=== PATIENT | female | born 1960 | race Caucasian/White ===

== ENCOUNTER 2020-10-17 10:50 | Inpatient (IN) | payer MEDICAID, OTHER ==
[~2020-10-17] VITALS: Ht 172.7 cm; Wt 73.5 kg
[2020-10-17 11:21] LABS: Basophils # (auto) 0.1 10 ^3/uL (0-0.2); Basophils % (auto) 1.1 % (0.0-2.0); Eosinophils # (auto) 0.2 10 ^3/uL (0-0.8); Eosinophils % (auto) 2.2 % (0.0-7.0); Hematocrit 34.7 % (36.0-46.0); Hemoglobin 11.4 g/dL (12.2-16.2); Lymphocytes # (auto) 2.6 10 ^3/uL (0.4-5.4); Mean Corpuscular Hemoglobin 31.7 pg (28.0-32.0); Mean Corpuscular Hgb Conc. 32.9 g/dL (32.0-36.0); Mean Corpuscular Volume 96.3 fL (80.0-100.0); Monocytes # (auto) 0.7 10 ^3/uL (0-1.3); Monocytes % (auto) 7.9 % (0.0-12.0); Neutrophils # (auto) 5.6 10 ^3/uL (1.6-8.6); Neutrophils % (auto) 60.8 % (37.0-80.0); Red Blood Cells 3.61 10^6/uL (4.0-5.20); Red Cell Distribution Width 15.9 % (11.8-14.3); White Blood Cell 9.2 10^3/uL (4.4-10.8)
[2020-10-17] MEDS ORDERED: InsuLIN REG 1unit/0.01ml Soln (100units/ml) IV ONE (11:45)
[2020-10-17 11:50] LABS: Calcium 9.4 mg/dL (8.5-10.1); Chloride 101 mmol/L (98-107); Potassium 4.4 mmol/L (3.5-5.1); Sodium 130 mmol/L (136-145)
[2020-10-17] MEDS ORDERED: SODIUM CHLORIDE 0.9% 500 ML IV ONE (12:00)
[2020-10-17 12:01] LABS: Alanine Aminotransferase 45 U/L (13-56); Albumin 3.8 g/dL (3.4-5.0); Alkaline Phosphatase 126 U/L (45-117); Anion Gap 8 (5-15); Aspartate Aminotransferase 28 U/L (15-37); BUN/Creatinine Ratio 9.2; Bilirubin, Total 0.6 mg/dL (0.2-1.0); Blood Urea Nitrogen 11 mg/dL (7-18); Carbon Dioxide 21 mmol/L (21-32); GFR African American 60 mL/min; GFR Non-African American 49 mL/min; Magnesium 1.7 mg/dL (1.6-2.6)
[2020-10-17 12:13] LABS: Glucose 541 mg/dL (74-106)
[2020-10-17 12:41] LABS: Urine Bacteria NONE SEEN /hpf (None Seen); Urine Blood Negative /uL (Negative); Urine Specific Gravity 1.026 (1.001-1.035); Urine WBC <1 /hpf (0 - 5)
[2020-10-17] MEDS ORDERED: NITROGLYCERIN 0.4 MG SL TAB SL PRN (13:00)
[2020-10-17] MEDS ORDERED: MORPHINE SULFATE INJECTION 2 MG/ML SYRG IV PRN (13:00)
[2020-10-17] MEDS ORDERED: DEXTROSE (50%) 50ML SYRG IV PRN (13:00)
[2020-10-17 13:37] LABS: Cholesterol 104 mg/dL (< 200)
[2020-10-17 13:40] LABS: HDL Cholesterol 65 mg/dL (40-59); LDL Cholesterol 30 mg/dL (< 100); Triglycerides 70 mg/dL (< 150)
[2020-10-17] MEDS: SODIUM CHLORIDE 0.9% 1,000 ML IV SCH ×2 (13:48→23:00)
[2020-10-17] MEDS: ACCU-CHEK COMFORT CURVE STRIP VI SCH ×3 (16:38→23:48)
[2020-10-17] MEDS: InsuLIN REG 1unit/0.01ml Soln (100units/ml) SC SCH ×3 (17:27→23:52)
[2020-10-17] MEDS ORDERED: DIPHENOXYLATE W/ATROPINE 2.5 MG TAB PO PRN (19:00)
[2020-10-17 22:00] VITALS: BP 104/72
[2020-10-17] MEDS: GABAPENTIN 100 MG CAP PO SCH ×2 (22:00→22:52)
[2020-10-17 23:49] VITALS: BP 104/72
[2020-10-18] MEDS ORDERED: METF-490 PO (00:15)
[2020-10-18] MEDS ORDERED: GLIP5TAB12 PO (00:15)
[2020-10-18] MEDS ORDERED: GABA300C10 PO (00:15)
[2020-10-18] MEDS ORDERED: ATOR10TA52 PO (00:15)
[2020-10-18] MEDS: ACCU-CHEK COMFORT CURVE STRIP VI SCH ×4 (04:03→16:13)
[2020-10-18] MEDS: InsuLIN REG 1unit/0.01ml Soln (100units/ml) SC SCH ×4 (04:06→16:35)
[2020-10-18 05:00] VITALS: BP 103/77
[2020-10-18 05:59] LABS: BUN/Creatinine Ratio 17.3; Calcium 7.9 mg/dL (8.5-10.1); Potassium 3.1 mmol/L (3.5-5.1)
[2020-10-18 07:45] VITALS: BP 110/78
[2020-10-18 08:30] VITALS: BP 110/78
[2020-10-18] MEDS: SODIUM CHLORIDE 0.9% 1,000 ML IV SCH (09:00)
[2020-10-18] MEDS: GABAPENTIN 100 MG CAP PO SCH (09:03)
[2020-10-18] MEDS ORDERED: PANTOPRAZOLE 40 MG TAB PO SCH (10:00)
[2020-10-18] MEDS ORDERED: INSULIN LANTUS (GLARGINE) 1 /0.01ml (100units/ml) SC SCH (10:00)
[2020-10-18 12:30] VITALS: BP 112/77
[2020-10-18] MEDS ORDERED: POTASSIUM CHL 20 Meq TABLET PO ONE (14:30)
[2020-10-18 15:30] VITALS: BP 112/77
[2020-10-18 16:41] VITALS: BP 109/81
== END 2020-10-18 16:55 | disposition home or self-care (01) | DRG 420 ==
LOC: ER 10:50 → TELE 10:51 → TELE-WESTW 20:50
PROVIDERS: ADMIT Nurse Practitioner Acute Care; ATTEND Internal Medicine
DX: E11.65 Type 2 diabetes mellitus with hyperglycemia (principal); E86.0 Dehydration; N17.0 Acute kidney failure with tubular necrosis; M54.5 Low back pain; E11.40 Type 2 diabetes mellitus with diabetic neuropathy, unspecified; E78.5 Hyperlipidemia, unspecified; E87.6 Hypokalemia; F17.210 Nicotine dependence, cigarettes, uncomplicated; M19.90 Unspecified osteoarthritis, unspecified site; Z20.822 Contact with and (suspected) exposure to COVID-19; Z83.3 Family history of diabetes mellitus; Z90.49 Acquired absence of other specified parts of digestive tract; R19.7 Diarrhea, unspecified
CPT/HCPCS: 36415; 71045; 72131; 80048; 80053; 80061; 81001; 82140; 82728; 82962; 83036; 83735; 84484; 85025; 85379; 86141; 87045; 87426; 87427; 87493; 93005; 99291; G0378; J1815